=== PATIENT | female | born 1980 | race African-American/Black ===

== ENCOUNTER 2020-02-26 22:18 | Emergency (ER) | payer MEDICAID, OTHER ==
[~2020-02-26] VITALS: Ht 167.6 cm; Wt 104.0 kg
[2020-02-26] MEDS ORDERED: HYDROCODONE/ACETAMINOPHEN 5/325MG TABLET PO ONE (22:45)
[2020-02-26 23:31] VITALS: BP 109/53
== END 2020-02-27 00:53 | disposition home or self-care (01) ==
LOC: ER 22:18
DX: R51 Headache (principal); R03.0 Elevated blood-pressure reading, without diagnosis of hypertension
CPT/HCPCS: 81025; 99284